=== PATIENT | male | born 1945 | race Caucasian/White ===

== ENCOUNTER 2017-09-01 13:15 | Inpatient (IN) | payer MEDICARE ==
[2017-09-03 11:44] VITALS: BMI 41.8
[2017-09-06] MEDS ORDERED: CEFAZOLIN/Water 2 GM/20 ML SYRINGE ONE (08:01)
[2017-09-06] MEDS ORDERED: Sodium Chloride 0.9% 10 ML ONE ×2 (08:33→14:58)
[2017-09-06] MEDS ORDERED: Midazolam HCl 2 mg/2 ml Vial ONE (08:58)
[2017-09-06] MEDS ORDERED: Fentanyl 100 MCG/2 ML VIAL ONE ×3 (08:58→11:24)
[2017-09-06] MEDS ORDERED: Promethazine HCl 25 MG/ML VIAL SLOW IVP PRN (10:33)
[2017-09-06] MEDS ORDERED: HYDROmorphone 2 MG/ML VIAL SLOW IVP PRN (10:33)
[2017-09-06] MEDS ORDERED: Promethazine HCl 25 MG/ML VIAL IM PRN ×2 (10:33→15:48)
[2017-09-06] MEDS ORDERED: Ondansetron HCl/PF 4 MG/2 ML Vial IVP PRN ×2 (10:33→15:48)
--- NOTE | 2017-09-06 11:08 | OP ---
DATE OF PROCEDURE: 09/06/2017 SURGEON: Jeanmarie Bhatti M.D. CONSUMER SAFETY OFFICER: Mykel Clark PA-C. PROCEDURES PERFORMED: Anterior cervical discectomy C5-C6 and C6-C7, interbody arthrodesis, intravert ebral biomechanical device, local morselized autograft, demineralized bone matrix, anterior titanium instrumentation C5-C7. PROCEDURE IN DETAIL: The patient was brought into the operating room, intubated. He was positioned supine with the head in modest extension on a gel-filled donut. Incision was made in the right prece rvical area and dissecting medial to the sternocleidomastoid muscle. We identified the anterior cerv ical spine and our level was confirmed by x-ray. 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 This was debrided and distraction placed between C5 and C7. The disc them selves were completely desiccated and were removed and the posterior osteophytes also decorticated an d debrided for the purpose of arthrodesis. Once a complete decompression had been secured, the bony endplates were decorticated for the purpose of arthrodesis and appropriately sized intravertebral bio mechanical PEEK device was brought into the field, filled with demineralized bone matrix and local mo rselized autograft, and tapped into place securely at C5-C6 and C6-C7. Next, an anterior plate was b rought in the field and secured to C5, C6, and C7 using two 14 mm screws at each level. The wound wa s then extensively irrigated, immaculate hemostasis was secured, and the wound was closed in anatomic layers over a drain.
[2017-09-06] MEDS ORDERED: traMADol HCl 50 MG TAB PO PRN ×2 (15:48)
[2017-09-06] MEDS ORDERED: diphenhydrAMINE 50 MG/ML VIAL IVP PRN (15:48)
[2017-09-06] MEDS ORDERED: diphenhydrAMINE 25 MG CAP PO PRN (15:48)
[2017-09-06] MEDS ORDERED: Morphine 4 MG/ML Carpuject SLOW IVP PRN (15:48)
[2017-09-06] MEDS ORDERED: Promethazine HCl 12.5 MG SUPP PR PRN (15:48)
[2017-09-06] MEDS ORDERED: Milk Of Magnesia 30 ML UDCUP PO PRN (15:48)
[2017-09-06] MEDS ORDERED: tiZANidine HCl 4 MG TAB PO PRN (15:48)
[2017-09-06] MEDS ORDERED: HYDROcodone/Acetaminophen 10/325 mg Tablet PO PRN (15:48)
[2017-09-06] MEDS ORDERED: Mag-Al 1200 mg/1200 mg/30 ML UDCUP PO PRN (15:48)
[2017-09-06] MEDS: Sodium Chloride 0.9% 1,000 ML IV SCH (15:58)
[2017-09-06] MEDS: HYDROcodone/Acetaminophen 10/325 mg Tablet PO PRN (15:59)
[2017-09-06] MEDS: CEFAZOLIN/Water 2 GM/20 ML SYRINGE SLOW IVP SCH (15:59)
[2017-09-06] MEDS ORDERED: Morphine PF 1 MG/ML SYR IVP PRN (16:00)
[2017-09-06] MEDS ORDERED: Morphine 5 mg/5 ml in 0.9% NaCl/PF SYRINGE SLOW IVP PRN (16:00)
[2017-09-06] MEDS ORDERED: Lidocaine 1% PF 5 ML VIAL ONE (17:04)
[2017-09-06] MEDS ORDERED: PHENYLEPHRINE-NS 100 MCG/ML 10 ML SYRINGE ONE (17:04)
[2017-09-06] MEDS ORDERED: Glycopyrrolate 0.2 MG/ML 5 ML SYRINGE ONE (17:04)
[2017-09-06] MEDS ORDERED: Ondansetron HCl/PF 4 MG/2 ML Vial ONE (17:04)
[2017-09-06] MEDS ORDERED: Succinylcholine Chloride 20 MG/ML 10 ml SYRINGE FS ONE (17:04)
[2017-09-06] MEDS ORDERED: Propofol 200 MG/20 ML VIAL ONE (17:04)
[2017-09-06] MEDS ORDERED: Nitroglycerin 0.4 MG TAB (25 Tab Bottle) SL PRN (20:06)
[2017-09-06] MEDS ORDERED: Polyethylene Glycol OPTH DROP 15 ML BOT EA EYE PRN (20:07)
[2017-09-06] MEDS ORDERED: PROVENTIL INHALER 6.7 G (200 INHALATIONS) INH PRN (20:12)
[2017-09-06] MEDS ORDERED: Losartan Potassium 25 MG TAB PO SCH (21:00)
[2017-09-06] MEDS ORDERED: NICARDIPINE PO SCH (21:00)
[2017-09-06] MEDS ORDERED: Fenofibrate Nanocrystallized 145 MG TAB PO SCH (21:00)
[2017-09-06] MEDS: Insulin NPH/Reg Insulin Hm 300 UNITS/3 ML VIAL SC SCH (21:13)
[2017-09-06] MEDS: hydrALAZINE 25 MG TAB PO SCH (21:14)
[2017-09-06] MEDS: Labetalol HCl 100 MG TAB PO SCH (21:17)
[2017-09-07] MEDS: CEFAZOLIN/Water 2 GM/20 ML SYRINGE SLOW IVP SCH (00:05)
[2017-09-07] MEDS: HYDROcodone/Acetaminophen 10/325 mg Tablet PO PRN ×2 (00:05→06:27)
[2017-09-07] MEDS: Sodium Chloride 0.9% 1,000 ML IV SCH (05:07)
[2017-09-07] MEDS ORDERED: Mometasone Furoate 120 PUFF 220 MCG INH SCH (07:00)
[2017-09-07 07:36] VITALS: TEMP 98.1
[2017-09-07] MEDS ORDERED: [UNRECOGNIZED DRUG - OTHER] PO SCH (09:00)
[2017-09-07] MEDS ORDERED: [UNRECOGNIZED DRUG - OTHER] PO SCH (09:00)
[2017-09-07] MEDS ORDERED: Fish Oil 1,000 MG CAP PO SCH (09:00)
[2017-09-07] MEDS ORDERED: Torsemide 100 MG TAB PO SCH (09:00)
[2017-09-07] MEDS ORDERED: Ubidecarenone 50 MG CAP PO SCH (09:00)
[2017-09-07] MEDS ORDERED: cloNIDine 0.2 MG TAB PO SCH (09:00)
[2017-09-07] MEDS ORDERED: Loratadine 10 MG TAB PO SCH (09:00)
[2017-09-07] MEDS: Labetalol HCl 100 MG TAB PO SCH (09:03)
[2017-09-07] MEDS: hydrALAZINE 25 MG TAB PO SCH (09:04)
[2017-09-07 09:09] VITALS: BP 182/84
[2017-09-07] MEDS: Insulin NPH/Reg Insulin Hm 300 UNITS/3 ML VIAL SC SCH (09:11)
[2017-09-07] MEDS ORDERED: Nitroglycerin 0.4 MG TAB (25 Tab Bottle) SL PRN (09:28)
--- NOTE | 2017-09-07 09:41 | CON ---
DATE OF CONSULTATION: 09/06/2017 REASON FOR CONSULTATION: Medical management. HISTORY OF PRESENT ILLNESS: He is a 72-year-old man with history of hypertension, diabetes, and hyperlipidemia, admitted today and underwent anterior cervical discectomy C5-C6 and C5, C6, C7 interbody arthrodesis and fusion by Dr. Bhatti. Postop, he is doing fine. Denies any complaint. No nausea, no vomiting. His vital signs, pulse 81 to 100, blood pressure 151/75 to 186/82, respirations 20, temperature 98. He denies any chest pain, any shortness of breath and pain adequately controlled. PAST MEDICAL HISTORY: Hypertension, diabetes. PAST SURGICAL HISTORY: Spine surgery. PERSONAL HISTORY: He does not smoke, does not drink, no drug use. REVIEW OF SYSTEMS: Denies any headache, denies dizziness. Does have some neck pain. No ear, nose, throat problem. No vision change. Chest: No cough, not short of breath, no wheezing. Cardiovascular: No palpitation, no chest pain, not short of breath. Genitourinary: No dysuria, no urgency, no hesitancy. Skin: No rash seen. PHYSICAL EXAMINATION: GENERAL: He is a man looking younger than age, not in distress. VITAL SIGNS: Pulse 100, blood pressure 186/82, respirations 20, temperature 98. HEENT: Head is atraumatic, normocephalic. Pupils round and reactive. Extraocular muscles are intact. Ear, nose, and throat are normal. Tongue mucosa moist. NECK: Supple. No JVD. He has a cervical spine surgery and drain in the neck. CHEST: Shows normal vascular breathing. No added sounds. CARDIOVASCULAR: S1 audible. No S4. ABDOMEN: Soft, no organomegaly. EXTREMITIES: No pedal edema. No cyanosis or clubbing. CENTRAL NERVOUS SYSTEM: Alert x3. No focal deficit. LABORATORY DATA: Lab shows glucose 80. MEDICATIONS: Medicine taken at home, aspirin 81 daily; clonidine 0.2 in the morning; hydralazine 25 t.i.d.; insulin NPH 70/30, 75 b.i.d.; labetalol 200 mg b.i.d.; loratadine 10 mg daily; losartan 100 mg at bedtime, Asmanex inhalers daily; Demadex 50 mg daily. ASSESSMENT AND PLAN: 1. Anterior cervical fusion C5-C7. Continue pain management. Physical therapy consult. 2. Hypertension. Continue his medicine Cozaar and labetalol and hydralazine. 3. Type 2 diabetes, insulin requiring. Continue sliding scale per 70/30, 75 b.i.d. 4. Deep venous thrombosis prophylaxis, sequential compression devices. Thank you, Dr. Bhatti, for consultation for medical management. We will follow the patient for medical problem. YOBANID
[2017-09-07] MEDS ORDERED: LABETALOL HCL 200 MG PO SCH (15:00)
[2017-09-07] MEDS ORDERED: hydrALAZINE 25 MG TAB PO SCH (15:00)
[2017-09-07] MEDS ORDERED: Non-Formulary Item 1 EACH (Losartan Potassium [Cozaar] 100 MG) PO SCH (21:00)
[2017-09-08] MEDS ORDERED: Non-Formulary Item 1 EACH (Mometasone Furoate [Asmanex] 220 MCG) IH SCH (09:00)
[2017-09-08] MEDS ORDERED: cloNIDine 0.2 MG TAB PO SCH (09:00)
[2017-09-08] MEDS ORDERED: RABEPRAZOLE SODIUM 20 MG PO SCH (09:00)
== END 2017-09-07 09:40 | disposition home or self-care (01) | DRG 473 ==
LOC: SURG A 09-06 06:49 → 3SE 09-06 13:13
PROVIDERS: ADMIT Neurological Surgery; ATTEND Neurological Surgery
PROC: 0RG20A0 Fusion of 2 or more Cervical Vertebral Joints with Interbody Fusion Device, Anterior Approach, Anterior Column, Open Approach (ICD-10-PCS; principal; 2017-09-06)
PROC: 0RB30ZZ Excision of Cervical Vertebral Disc, Open Approach (ICD-10-PCS; 2017-09-06)
DX: M50.00 Cervical disc disorder with myelopathy, unspecified cervical region (principal); E11.649 Type 2 diabetes mellitus with hypoglycemia without coma; J44.9 Chronic obstructive pulmonary disease, unspecified; M48.02 Spinal stenosis, cervical region; I10 Essential (primary) hypertension; Z79.4 Long term (current) use of insulin; Z95.1 Presence of aortocoronary bypass graft; Z90.49 Acquired absence of other specified parts of digestive tract
CPT/HCPCS: 36416; 76001; 80048; 85027; 93005; 93010; 94640; A4216; C1713; G8978-GP-CI; G8979-GP-CI; G8980-GP-CI; J2001; J2250; J2270; J2405; J2704; J3010; J3490; J7620

== ENCOUNTER 2017-09-23 14:48 | Outpatient (CLI) | payer MEDICARE ==
--- NOTE | 2017-09-23 16:26 | RAD ---
CERVICAL SPINE 4 VIEWS: HISTORY: Neck pain. Prior surgery. FINDINGS: Anterior fixation plate is in place at the C5-6-7 levels. Metallic markers associated with interbody fusion material are within the confines of the disk spaces at the postoperative level. Vertebral isaac dy heights are maintained. Prominent osteophytosis is present throughout the nonsurgerized cervical spine. No acute fracture or dislocation are visible. IMPRESSION: Postoperative changes of the cervical spine. Degenerative changes of the remainder of the cervical s pine. POS: BERNT
== END 2017-09-23 14:49 | disposition home or self-care (01) ==
LOC: TBSIIMAG 14:48
PROVIDERS: ATTEND Neurological Surgery
DX: M50.00 Cervical disc disorder with myelopathy, unspecified cervical region (principal); M47.12 Other spondylosis with myelopathy, cervical region; Z98.890 Other specified postprocedural states
CPT/HCPCS: 72040

== ENCOUNTER 2017-11-18 14:40 | Outpatient (CLI) | payer MEDICARE ==
--- NOTE | 2017-11-18 15:42 | RAD ---
CERVICAL SPINE SERIES 3 VIEWS: Date: 11/18/17 HISTORY: Postop. COMPARISON: 09/23/16 study. FINDINGS: The patient has undergone anterior cervical fusion, spanning from C5 to C7 with plate and screws. The markers of the disc implants are within the confines of the disc level. Degenerative disc narrowing at C4-5. IMPRESSION: Stable postoperative changes of the spine. POS: BRENT
== END 2017-11-18 14:41 | disposition home or self-care (01) ==
LOC: TBSIIMAG 14:40
PROVIDERS: ATTEND Neurological Surgery
DX: M54.12 Radiculopathy, cervical region (principal); Z98.1 Arthrodesis status
CPT/HCPCS: 72040